=== PATIENT | female | born 1955 | race Hispanic/Latino ===

== ENCOUNTER 2023-10-04 08:14 | Emergency (ER) | payer MEDICARE ==
[~2023-10-04] VITALS: Ht 157.5 cm; Wt 45.4 kg
[2023-10-04 10:03] LABS: SARS-CoV-2, RNA, NAAT POSITIVE SARS CoV-2 (NEGATIVE)
[2023-10-04 10:06] LABS: INFLUENZA TYPE A Negative For Type A (NEGATIVE); INFLUENZA TYPE B Negative For Type B (NEGATIVE)
[2023-10-04 10:10] LABS: RAPID GROUP A STREP positive (NEGATIVE)
[2023-10-04] MEDS: AMOXICILLIN 250MG/5ML SUSP 80ML PO ONE (10:40)
[2023-10-04] MEDS: DEXAMETHASONE SOD PHOSPHATE 4 MG/ML 1ML VIAL IM ONE (10:40)
[2023-10-04] MEDS: ACETAMINOPHEN 325 MG/10.15ML UDCUP PO ONE (10:41)
[2023-10-04 10:49] VITALS: BP 126/79; PULSE 98; RESP 18; O2SAT 97
[2023-10-04] MEDS ORDERED: ACET650S28 PO (10:53)
[2023-10-04] MEDS ORDERED: BENZ-39 PO (10:53)
[2023-10-04] MEDS ORDERED: AMOX250L PO (10:53)
== END 2023-10-04 11:31 | disposition home or self-care (01) ==
LOC: EDH 08:14
DX: J02.0 Streptococcal pharyngitis (principal); U07.1 COVID-19
CPT/HCPCS: 99283; 87635; 87880; 87804 ×2; 96372; J1100